=== PATIENT | male | born 1960 | race Caucasian/White ===

== ENCOUNTER 2016-10-28 16:16 | Emergency (ER) | payer OTHER, SELFPAY ==
--- NOTE | 2016-11-01 19:04 | ER ---
ADMIT: 10/28/2016 RM/LOC: [facility] MR#: [id number] [address] KATIE LESTER [address] [place] [address] Emergency Room Report SEX: M AGE: 56 : 1960 DATE: 10/28/2016 ADDENDUM: CHIEF COMPLAINT: Seizure. HISTORY OF PRESENT ILLNESS: This is a 56-year-old male, who had a history of seizures when he was a child until being a teenager, has been on Depakote initially. He made it sound like he had not been on Depakote since he was a teenager coming to find out he stopped his Depakote a year and a half ago. PAST MEDICAL HISTORY: Hypertension. MEDICATIONS: Lisinopril. ALLERGIES: NO KNOWN ALLERGIES. SOCIAL HISTORY: Denies any drug use but has been drinking beer daily until just this last Monday. He quit abruptly. Has been trying to withdraw on his own. Today, he was at his parent's house and had a seizure. FAMILY HISTORY: Noncontributory. REVIEW OF SYSTEMS: CONSTITUTIONAL: He denies any fevers, chills, sweats. HEENT: The only complaint he has is that he has a lip abrasion. CARDIOVASCULAR AND RESPIRATORY: Denies any chest pain or shortness of breath. GI AND : Denies any nausea, vomiting, or diarrhea. MUSCULOSKELETAL: Denies any pain in any muscles. All systems otherwise negative. PHYSICAL EXAMINATION: VITAL SIGNS: Blood pressure is 141/94, pulse is 81, respirations 16, temperature is 99.2, saturation of oxygen is 97% on room air. GENERAL APPEARANCE: He is in no acute distress and alert. HEENT: TMs are non-erythemic, no hemotympanum. No clotted nasal blood. Eyes are PERRL and EOMs intact. Pharynx; he does have superficial abrasions and lacerations to his upper and lower lip. HEART: Regular rate and rhythm. LUNGS: CTA bilateral. ABDOMEN: Soft, nontender. No distention. SKIN: Normal color, warm and dry. No rashes noted. NEURO AND PSYCH: He does have a flat affect but alert. COURSE IN THE EMERGENCY ROOM: CBC, CMP, UA, tox screen, EtOH, CT head and EKGs done. His EKG was over-read by Dr. Perez, was sinus rhythm at a rate of 72. CMP is normal except for potassium of 3.5. His AST is 84, ALT is 113. ADMIT: 10/28/2016 RM/LOC: ER [facility] MR#: [id number] [address] KATIE LESTER [address], [place] [address] Emergency Room Report SEX: M AGE: 56 : 1960 His EtOH is 5. Toxicology screen is negative. Urine is normal. The patient refuses to be admitted, refuses to go to [facility] for alcohol detox. I did speak with Dr. Hays regarding this patient as a [facility]. We are going to start him on Librium 50 mg from titrating one tab t.i.d. down to daily. I am giving him enough to get him through for eight days. I did tell him to follow up with either [facility] or Family Practice this week. He does have Depakote still at home. After talking to Dr. Hays, the patient wants to start his Depakote since he has only been off it for a year and a half. I told him to continue his dose that he was prescribed prior. He says he has enough to get him through for a few weeks. CLINICAL IMPRESSION: Alcohol withdrawal seizure. ANGIE Crain / Pato Milian MD / modl JOB #: [id number] CC: Octavio Perez MD, Attending Physician UNKNOWN, Family Physician
== END 2016-10-28 20:21 | disposition home or self-care (01) ==
LOC: ER 16:16
DX: F10.239 Alcohol dependence with withdrawal, unspecified (principal); G40.509 Epileptic seizures related to external causes, not intractable, without status epilepticus; Y90.0 Blood alcohol level of less than 20 mg/100 ml; I10 Essential (primary) hypertension; F17.210 Nicotine dependence, cigarettes, uncomplicated; Z79.899 Other long term (current) drug therapy